=== PATIENT | female | born 1960 | race Caucasian/White ===

== ENCOUNTER 2020-04-30 06:58 | Outpatient (NON) | payer BC, SELFPAY ==
[2020-04-30 11:09] LABS: Influenza Control Positive
[2020-04-30 18:22] LABS: SARS-CoV-2 RNA PCR Negative
== END 2020-04-30 06:59 ==
LOC: ANHCOVIDDT 07:12
PROVIDERS: Visit Provider Family Medicine
DX: R05 Cough (principal); Z20.828 Contact with and (suspected) exposure to other viral communicable diseases
CPT/HCPCS: 87635; 87804; C9803; U0003

== ENCOUNTER 2020-08-06 13:57 | Outpatient (CLI) | payer BC, SELFPAY | END 2020-08-06 13:58 | disposition home or self-care (01) | LOC: ANHCOVIDVC 13:57 | PROVIDERS: PCP Family Medicine | DX: Z23 Encounter for immunization (principal) | CPT/HCPCS: 0001A; 91300 ==

== ENCOUNTER 2020-08-27 14:22 | Outpatient (CLI) | payer BC, SELFPAY | END 2020-08-27 14:23 | disposition home or self-care (01) | LOC: ANHCOVIDVC 14:22 | PROVIDERS: PCP Family Medicine | DX: Z23 Encounter for immunization (principal) | CPT/HCPCS: 0002A; 91300 ==